=== PATIENT | male | born 1970 | race Caucasian/White ===

== ENCOUNTER 2016-08-04 10:28 | Emergency (ER) | payer SELFPAY ==
[~2016-08-04] VITALS: Ht 175.3 cm; Wt 100.4 kg
[~2016-08-04 10:28] MED LIST: FLEXERIL10 MG PO; MOTRIN800 MG PO; NOHOMEMEDS
[2016-08-04] MEDS ORDERED: ERYTHROMYCIN O3.5 GM LEFT EYE (13:14)
[2016-08-04 13:17] VITALS: BP 173/108
[2016-08-04] MEDS ORDERED: LISINOPRIL10 MG PO (13:19)
== END 2016-08-04 13:35 | disposition home or self-care (01) ==
LOC: EME 10:28
DX: H10.9 Unspecified conjunctivitis (principal); I10 Essential (primary) hypertension
CPT/HCPCS: 99281; 99284

== ENCOUNTER 2016-08-14 10:54 | Emergency (ER) | payer OTHER ==
[~2016-08-14] VITALS: Ht 175.3 cm; Wt 100.0 kg
[~2016-08-14 10:54] MED LIST changes: +ERYTHROMYCIN O3.5 GM LEFT EYE; +LISINOPRIL10 MG PO
[2016-08-14] MEDS ORDERED: TYLENOL WITH C1 EACH PO (12:32)
[2016-08-14 12:46] VITALS: BP 142/98
== END 2016-08-14 12:49 | disposition home or self-care (01) ==
LOC: EME → EDBD 10:54 → EME 12:49
DX: S10.93XA Contusion of unspecified part of neck, initial encounter (principal); S30.0XXA Contusion of lower back and pelvis, initial encounter; V49.50XA Passenger injured in collision with unspecified motor vehicles in traffic accident, initial encounter; I10 Essential (primary) hypertension; Z87.891 Personal history of nicotine dependence
CPT/HCPCS: 71020; 72040; 72100; 99281; 99283

== ENCOUNTER 2017-05-21 00:07 | Emergency (ER) | payer SELFPAY ==
[~2017-05-21] VITALS: Ht 180.3 cm; Wt 106.2 kg
[~2017-05-21 00:07] MED LIST changes: +TYLENOL WITH C1 EACH PO
[2017-05-21 00:37] LABS: HEMATOCRIT 48.5 % (38.0-50.0); HEMOGLOBIN 16.8 G/DL (12.5-16.6); MCH 28.4 PG (29.0-34.0); MCHC 34.6 G/DL (30.0-36.0); MCV 82.1 FL (86-99); PLATELET COUNT 267 K/uL (156-360); RBC DIS.WIDTH-CV 13.3 % (11.8-14.6); RBC DIS.WIDTH-SD 39.6 % (39-53); RED BLOOD COUNT 5.91 M/uL (4.00-5.50); WHITE BLOOD COUNT 8.7 K/uL (4.1-10.2)
[2017-05-21 00:55] LABS: CHLORIDE 105 mEq/L (99-109); POTASSIUM 3.7 mEq/L (3.7-5.4); SODIUM 140 mEq/L (136-147)
[2017-05-21 00:56] LABS: GLUCOSE 101 mg/dL (70-99)
[2017-05-21 01:00] LABS: CREATININE 0.9 mg/dL (0.6-1.3); GFR ESTIMATE (CALCULATED) > 59 mL/min/ (58.99-99999)
[2017-05-21 01:01] LABS: UREA NITROGEN (BUN) 14 mg/dL (9-23)
[2017-05-21 01:02] LABS: TROP-I INTERPRETATION NEGATIVE; TROPONIN-I < 0.01 ng/mL (0.0-0.30)
[2017-05-21 02:46] LABS: ALBUMIN 4.3 g/dL (3.2-4.8)
[2017-05-21 02:49] LABS: TOTAL PROTEIN 7.6 g/dL (6.4-8.3)
[2017-05-21 02:52] LABS: ALKALINE PHOSPHATASE 92 IU/L (3-129)
[2017-05-21 02:54] LABS: AST (GOT) 37 IU/L (2-34)
[2017-05-21 02:55] LABS: ALT (GPT) 77 IU/L (3-49); DIRECT BILIRUBIN 0.3 mg/dL (0.0-0.3)
[2017-05-21 02:56] LABS: LIPASE 54 U/L (1.0-51.0)
[2017-05-21 05:00] LABS: APPEARANCE CLEAR ((CLEAR)); BILIRUBIN NEGATIVE; BLOOD NEGATIVE; COLOR YELLOW ((YELLOW)); GLUCOSE (STRIP) NEGATIVE; KETONES NEGATIVE; LEUKOCYTES NEGATIVE; NITRITE NEGATIVE; PROTEIN (STRIP) NEGATIVE; SPECIFIC GRAVITY 1.026 (1.000-1.030); UCUL ADDED? NO; UROBILINOGEN 0.2 MG/DL (0.2-1.0)
[2017-05-21 05:58] LABS: TROP-I INTERPRETATION NEGATIVE; TROPONIN-I < 0.01 ng/mL (0.0-0.30)
[2017-05-21] MEDS ORDERED: LISINOPRIL10 MG PO (06:00)
[2017-05-21] MEDS ORDERED: MAALOX MAXIMUM355 ML PO (06:00)
[2017-05-21] MEDS ORDERED: PRILOSEC20 MG PO (06:00)
[2017-05-21 06:20] VITALS: BP 131/95
== END 2017-05-21 06:20 | disposition home or self-care (01) ==
LOC: EME 00:07
PROVIDERS: Emergency Medicine
DX: K29.70 Gastritis, unspecified, without bleeding (principal); I10 Essential (primary) hypertension; R07.9 Chest pain, unspecified; K76.0 Fatty (change of) liver, not elsewhere classified; I45.10 Unspecified right bundle-branch block; Z82.49 Family history of ischemic heart disease and other diseases of the circulatory system; Z87.891 Personal history of nicotine dependence
CPT/HCPCS: 71046; 74177; 76705; 80048; 80076; 81003; 83690; 84484; 85027; 93005; 99281; 99285; J3010; J7030